=== PATIENT | male | born 1940 | race Caucasian/White ===

== ENCOUNTER 2017-03-20 00:34 | Emergency (ER) | payer MEDICARE, OTHER ==
[2017-03-20 01:32] LABS: BASOPHIL 0.4 % (0-2); EOSINOPHIL 3.3 % (0-7); HCT 39.3 % (42.0-52.0); HGB 12.6 g/dl (13.2-18.0); LYMPHOCYTE 26.5 % (15-48); MCH 26.7 pg (25.0-31.0); MCHC 32.1 g/dL (32.0-36.0); MCV 83.3 fL (78.0-100.0); MONOCYTE 12.1 % (0-12); MPV 9.7 fL (6.0-9.5); NEUTROPHIL 57.7 % (41-80); PLT 373 K/uL (150-400); RBC 4.72 M/uL (4.70-6.00); RDW 18.5 % (11.5-14.0); WBC 7.6 K/uL (4.0-10.5)
[2017-03-20 01:36] LABS: INR 1.29 (0.9-1.2); PROTHROMBIN TIME 15.6 SECONDS (11.7-14.0); PTT 36.9 SECONDS (23.2-31.4)
[2017-03-20 01:42] LABS: ALBUMIN 3.7 g/dL (3.4-4.8); BILIRUBIN - TOTAL 0.3 mg/dL (0.1-1.0); CREATININE 0.8 mg/dL (0.7-1.2); GLOBULIN (CALCULATION) 2.3 g/dL (2.2-4.2); POTASSIUM 3.4 mmol/L (3.5-5.1)
[2017-03-20 03:20] LABS: BASOPHIL NO PRINT 0.2 % (0-2); EOSINOPHIL NO PRINT 2.6 % (0-7); HCT 37.1 % (42.0-52.0); HGB 11.9 g/dL (13.2-18.0); MCH NO PRINT 26.9 pg (25.0-31.0); MCHC NO PRINT 32.1 g/dL (32.0-36.0); MCV NO PRINT 83.7 fL (78.0-100.0); MPV NO PRINT 9.5 fL (6.0-9.5); NEUTROPHIL NO PRINT 58.2 % (41-80); PLT NO PRINT 372 K/uL (150-400); RBC NO PRINT 4.43 M/uL (4.70-6.00); RDW NO PRINT 18.6 % (11.5-14.0); WBC NO PRINT 9.7 K/uL (4.0-10.5)
== END 2017-03-20 06:20 | disposition other institution (70) ==
LOC: FER 00:34
PROVIDERS: Emergency Medicine Emergency Medical Services
DX: K62.5 Hemorrhage of anus and rectum (principal); I48.91 Unspecified atrial fibrillation; Z95.5 Presence of coronary angioplasty implant and graft; Z88.0 Allergy status to penicillin; Z88.7 Allergy status to serum and vaccine; Z79.899 Other long term (current) drug therapy
CPT/HCPCS: 36415; 36430; 80053; 82150; 83690; 85014; 85018; 85025; 85610; 85730; 86850; 86900; 86901; 86922; 93005; 96365; C9113; P9016; Q9967